=== PATIENT | male | born 1955 | race Caucasian/White ===

== ENCOUNTER 2017-11-06 11:30 | Emergency (ER) | payer OTHER ==
[2017-11-06] MEDS ORDERED: NS 1,000 ML IV ONE (11:44)
--- NOTE | 2017-11-06 11:49 | EDPHY ---
H & P Time Seen by Provider: 11/06/17 11:34 HPI/ROS: HPI Right flank pain. 61-year-old male by private vehicle. This patient reports that 4 days ago he was pulling some heavy tree branches to remove them from where they fell. He reports that soon after this he developed right-sided flank pain. He describes this is deep, dull and aching with some intermittent radiation to the right lower quadrant of his abdomen. He reports that he has had a sense of urgency to urinate but often can't and also states that he urinates frequently and in small amounts. He denies gross hematuria. He has not had a fever. He denies any history of trauma. He does report having a history of kidney stones as well as hepatitis-C. He has had some nausea but no vomiting. ROS: Constitutional: No fever, no chills. No weakness. Eyes: No discharge. No changes in vision. ENT: No sore throat. No nasal congestion or rhinorrhea. Respiratory: No cough. No shortness of breath. Cardiac: No chest pain, no palpitations. Gastrointestinal: As above, no vomiting, no diarrhea. Genitourinary: No hematuria. No dysuria or increased frequency with urination. Musculoskeletal: As above. No neck pain. No myalgias or arthralgias. Skin: No rashes. Neurological: No headache. No focal weakness or altered sensation. Past medical history: Orthopedic surgeries, chronic back pain, depression, hepatitis-C. Please see medication list. Social history: Here by himself. Smoker. Denies alcohol. Physical Exam: General Appearance: Alert, he appears uncomfortable but not in distress. Thin. This patient is responding to questions appropriately and in full sentences. This patient appears well-hydrated and well-nourished. Eyes: Pupils equal and round no pallor or injection. No lid edema, erythema or injection. Respiratory: There are no retractions, lungs are clear to auscultation anteriorly with good air movement bilaterally. Cardiovascular: Regular rate and rhythm. No murmur appreciated. Gastrointestinal: Abdomen is soft and nontender, no masses, bowel sounds normal. No focal tenderness at McBurney's point. No Romero sign. Neurological: Motor sensory function is grossly intact. Cranial nerves are normal. Gait is normal. Skin: Warm and dry, no rashes. Musculoskeletal: Vague right-sided CVA tenderness on palpation. No left-sided CVA tenderness. Extremities are symmetrical. All joints range without pain or impingement. Psychiatric: No agitation. No depression. Database: EKG: Imaging: CT abdomen and pelvis without contrast: Significant for a 19 mm x 11 mm right proximal ureteral stone with marked hydronephrosis, edema and indira-nephric stranding associated with the kidney. Please see radiology report for further details on this study. Results were discussed with staff radiologist Dr. Zeus Lagos. Procedures: Emergency department course: Triage vital signs reviewed. An IV was placed. He will be started on IV normal saline with 500 cc to 1 L to be given over the next hour. CT imaging of the abdomen and pelvis without contrast will be obtained to evaluate for ureterolithiasis. He will be given IV hydromorphone, 0.5 mg and 4 mg of IV Zofran as needed for pain and nausea. He consents to the emergency department workup and CT imaging. 12:15 p.m., the patient's urine dip indicates infection. This was sent for micro and culture. The patient will be started on 2 g of IV Rocephin in the emergency department. The patient was also given 4 mg of IV Zofran for nausea. He is declining pain medication. 12:35 p.m., the patient was re-evaluated. He is receiving his IV antibiotics at this time. Results of his CT scan, blood work and urinalysis discussed with him. Diagnosis and need for admission for treatment of kidney infection as well as urology consultation discussed with him. He is refusing admission at this time. He states that he has too many things going on at home that he needs to take care of before he is admitted. I have paged urology. The patient competently engages in conversation and understanding of his condition. They demonstrate capacitance to make decisions. Despite explaining to him the significant risks to his overall health as well as his kidney of being discharged from the emergency department and not being admitted at this time he is declining admission. Plan right now will be to try to arrange close outpatient follow-up with Urology. This patient likely will require a nephrostomy tube. 1:00 p.m., spoke with Urology, Dr. Zhao, case discussed in detail with her. She is in the OR at [facility] currently. As noted above the patient is refusing admission. However, Dr. Zhao will take this patient to the OR now at [facility] for nephrostomy and further management. The patient is in agreement with this plan. As of this time, I am unable to arrange for appropriate care through [facility]. I have filled out the appropriate transfer paperwork. The accepting physician is Dr. Zhao The patient is to go directly to admissions at [facility]. The patient understands this plan. He will go by private vehicle. All of his questions were answered. Return to emergency department precautions reviewed. He was discharged in good condition. I have prescribed him Levaquin and tramadol for treatment of his pyelonephritis. He has been NPO in the emergency department and understands he is not to eat or drink anything until after his procedure. Differential Diagnosis: The differential diagnosis on this patient includes but is not limited to musculoskeletal back pain, ureterolithiasis, pyelonephritis, hepatitis. This represents a partial list of diagnoses considered. These considerations are based on history, physical exam, past history, reassessment and diagnostic testing. Smoking Status: Current every day smoker Constitutional: Initial Vital Signs Temperature (C) 37.6 C 11/06/17 11:45 Heart Rate 79 11/06/17 11:45 Respiratory Rate 16 11/06/17 11:45 Blood Pressure 133/76 H 11/06/17 11:45 O2 Sat (%) 93 11/06/17 11:45 O2 Delivery Mode Room Air Allergies/Adverse Reactions: aspirin [Aspirin] Allergy (Severe, Verified 11/06/17 11:37) Anaphylaxis Home Medications: Medication Instructions Recorded Ibuprofen [Motrin (*)] 800 mg PO Q4-6PRN PRN #28 tab 09/13/15 Antidepressant 11/06/17 Epclusa 400 mg-100 mg Tablet 11/06/17 Subutex 11/06/17 levOFLOXACIN [levAQUIN (*)] 750 mg PO DAILY #10 tab 11/06/17 traMADol [Ultram 50 mg (*)] 50 - 100 mg PO Q4-6PRN PRN #20 tab 11/06/17 Medical Decision Making - Diagnostics Imaging Results: Imaging Impressions Abdomen/Pelvis CT 11/06/17 11:45 Impression: 1. Moderate to severe right hydroureteronephrosis, secondary to a 19 x 11 mm proximal right ureteral calculus with right perinephric stranding, also consistent with pyelonephritis. 2. Multiple nonobstructing left renal calculi, including a left renal pelvis 21 x 16 mm calculus. 3. No left hydronephrosis. 4. Atherosclerotic aorta without aneurysm. 5. Constipation. 6. Please see above findings. Findings and recommendations discussed with Emergency Department physician, Dr. Aaron Dodson at 1220 hours on November 06, 2017. Final report concurs with initial preliminary interpretation. Attention: This CT examination is specifically designed to evaluate patients who are clinically suspected of having acute obstructive uropathy. This examination does not use radiographic contrast, and as such, provides only a limited evaluation of the abdomen, pelvis and retroperitoneum. If there is further clinical suspicion for pathological conditions other than obstructive uropathy, a complete CT evaluation of the abdomen and pelvis utilizing intravenous, oral, and rectal contrast should be considered. - Data Points Laboratory Results: 11/06/17 12:13 POC Sodium 131 mEq/L L mEq/L (135-145) POC Potassium 4.7 mEq/L mEq/L (3.3-5.0) POC Chloride 99.0 mEq/L mEq/L (97-110) POC Total CO2 28 mEq/L mEq/L (22-31) POC BUN 22 mg/dL mg/dL (7-23) POC Creatinine 1.4 mg/dL H mg/dL (0.7-1.3) POC Glucose 156 mg/dL H mg/dL (70-100) POC Calcium 9.4 mg/dL mg/dL (8.5-10.4) POC Total Bilirubin 0.6 mg/dL mg/dL (0.1-1.4) POC AST 26 IU/L IU/L (17-59) POC ALT 16 IU/L L IU/L (21-72) POC Alk Phosphatase 75 IU/L IU/L (38-126) POC Total Protein 7.8 g/dL g/dL (6.3-8.2) POC Albumin 3.6 g/dL g/dL (3.5-5.0) Medications Given: Discontinued Medications Sodium Chloride (Ns) 1,000 mls @ 0 mls/hr IV EDNOW ONE; Wide Open PRN Reason: Protocol Stop: 11/06/17 11:45 Last Admin: 11/06/17 12:28 Dose: 1,000 mls Ceftriaxone Sodium 2 gm/ (Sodium Chloride) 100 mls @ 200 mls/hr IV EDNOW ONE PRN Reason: Protocol Stop: 11/06/17 12:39 Last Admin: 11/06/17 12:32 Dose: 100 mls Ondansetron HCl (Zofran) 4 mg IVP EDNOW ONE Stop: 11/06/17 12:17 Last Admin: 11/06/17 12:29 Dose: 4 mg Point of Care Test Results: CBC CBC Collection Date 11/06/17 CBC Collection Time 12:02 WBC 20.2 RBC 4.52 HGB 14.2 HCT 43.2 PLT 211 Neut # 19.4 Neut 96.4 LYMPH # 0.5 LYMPH 2.3 Other WBC # 0.3 Other WBC 1.3 MCV 95.6 Chemistry 11/06/17 12:13 POC Sodium 131 mEq/L L mEq/L (135-145) POC Potassium 4.7 mEq/L mEq/L (3.3-5.0) POC Chloride 99.0 mEq/L mEq/L (97-110) POC Total CO2 28 mEq/L mEq/L (22-31) POC BUN 22 mg/dL mg/dL (7-23) POC Creatinine 1.4 mg/dL H mg/dL (0.7-1.3) POC Glucose 156 mg/dL H mg/dL (70-100) POC Calcium 9.4 mg/dL mg/dL (8.5-10.4) POC Total Bilirubin 0.6 mg/dL mg/dL (0.1-1.4) POC AST 26 IU/L IU/L (17-59) POC ALT 16 IU/L L IU/L (21-72) POC Alk Phosphatase 75 IU/L IU/L (38-126) POC Total Protein 7.8 g/dL g/dL (6.3-8.2) POC Albumin 3.6 g/dL g/dL (3.5-5.0) Urine Dip Collection Date 11/06/17 Collection Time 11:54 Specific Wilson (1.002-1.030) 1.030 PH (5.0-7.5) 6.5 Leukocytes (Negative) 3+ Nitrites (Negative) Positive Protein (Negative) 2+ Glucose (Negative) Negative Ketones (Negative) Negative Urobilnogen (0.2-1.0 EU) 0.2 Bilirubin (Negative) Negative Blood (Negative) 2+ Departure - Departure Disposition: Acute Care Hospital Not [facility] Clinical Impression: Right flank pain, Right kidney stone, Pyelonephritis Condition: Good Instructions: Kidney Stones (ED), Kidney Infection (ED), Nephrostomy Tube Insertion (DC) Additional Instructions: Read and follow provided instructions. You are to go directly to [facility], main entrance, ask for admissions at the front end manager. They are expecting you. You will be taken care of by Dr. Abigail Zhao of the Urology service. Do not eat or drink anything until after your procedure. Take medication as prescribed after your procedure. Nothing before you're procedure. Return to the emergency department for worsening pain, fever, vomiting or other serious concerns. Referrals: Abigail Zhao MD [Medical Doctor] - As per Instructions Prescriptions: levOFLOXACIN [levAQUIN (*)] 750 mg PO DAILY #10 tab traMADol [Ultram 50 mg (*)] 50 - 100 mg PO Q4-6PRN PRN #20 tab PRN Reason: Pain, Moderate
[2017-11-06] MEDS ORDERED: ONDANSETRON 4 MG/2 ML VIAL IVP ONE (12:16)
[2017-11-06] MEDS ORDERED: LR 1,000 ML IV ONE (16:18)
[2017-11-06] MEDS ORDERED: PROPOFOL 200 MG/20 ML VIAL ONE (18:54)
[2017-11-06] MEDS ORDERED: DEXAMETHASONE 4 MG/ML VIAL ONE (18:54)
[2017-11-06] MEDS ORDERED: ONDANSETRON 4 MG/2 ML VIAL ONE (18:54)
[2017-11-06] MEDS ORDERED: LIDOCAINE 2% 5 ML SDV ONE (18:54)
[2017-11-06] MEDS ORDERED: fentaNYL 100 MCG/2 ML INJ ONE (18:54)
--- NOTE | 2017-11-06 20:19 | POSTOPPROG ---
Post Op Note Date of Operation: 11/06/17 Surgeon: Abigail Zhao Anesthesia: GET(General Endotracheal) Pre-op Diagnosis: obstructing right ureteral stone, left large renal pelvis stone, UTI Post-op Diagnosis: same Indication: infection and obstructing stone Procedure: cystoscopy, bilateral ureteral stent placement, intraoperative fluoroscopy Findings: difficult stent on R due to obstruction of stone Inf/Abcess present in the surg proc area at time of surgery?: Yes Depth: Organ Space (urologic) EBL: Minimal Complications: None,pt tolerated procedure well Specimen(s): Urine for culture
[2017-11-06] MEDS ORDERED: ONDANSETRON 4 MG/2 ML VIAL IVP PRN (20:23)
[2017-11-06] MEDS ORDERED: ALBUTEROL 3 ML DEYVIAL IH PRN (20:23)
[2017-11-06] MEDS ORDERED: NALOXONE HCL 0.4 MG/ML INJ IVP PRN (20:23)
[2017-11-06] MEDS ORDERED: fentaNYL 100 MCG/2 ML INJ IVP PRN (20:23)
[2017-11-06 22:27] VITALS: BP 117/74
== END 2017-11-06 20:55 | disposition home or self-care (01) ==
LOC: FSGY 11:30 → CED 13:34 → FSGY 16:15
DX: N13.2 Hydronephrosis with renal and ureteral calculous obstruction (principal); R10.31 Right lower quadrant pain; E86.9 Volume depletion, unspecified; Z87.442 Personal history of urinary calculi; B19.20 Unspecified viral hepatitis C without hepatic coma; F17.210 Nicotine dependence, cigarettes, uncomplicated
CPT/HCPCS: 74176-PO; 80053-PO; 96365; J0696; J1100; J2405; J2704; J3010

== ENCOUNTER → 2017-11-06 | Day surgery (SDC) | payer OTHER ==
[~2017-11-06] MED LIST: ALBUTEROL 3 ML DEYVIAL IH PRN; DEXAMETHASONE 4 MG/ML VIAL ONE; IOPAMIDOL (ISOVUE-M 300) 15 ML VIAL ONE; LIDOCAINE 2% 5 ML SDV ONE; LIDOCAINE 2% JELLY 20 ML (UROJECT) ONE; LR 1,000 ML IV ONE; MIDAZOLAM 2 MG/2 ML VIAL IVP ONE; NALOXONE HCL 0.4 MG/ML INJ IVP PRN; ONDANSETRON 4 MG/2 ML VIAL IVP PRN; ONDANSETRON 4 MG/2 ML VIAL ONE; OPIUM/BELLADONNA ALKALO SUPP PR ONE; PROPOFOL 200 MG/20 ML VIAL ONE; fentaNYL 100 MCG/2 ML INJ IVP PRN; fentaNYL 100 MCG/2 ML INJ ONE
--- NOTE | 2017-11-06 18:51 | PDANEPAE ---
ANE History of Present Illness ureteral stone ANE Past Medical History - Cardiovascular History Hx Hypertension: No Hx Arrhythmias: No Hx Chest Pain: No Hx Coronary Artery / Peripheral Vascular Disease: No Hx CHF / Valvular Disease: No Hx Palpitations: No - Pulmonary History Hx COPD: No Hx Asthma/Reactive Airway Disease: No Hx Recent Upper Respiratory Infection: No Hx Oxygen in Use at Home: No Hx Sleep Apnea: No - Neurologic History Hx Cerebrovascular Accident: No Hx Seizures: No Hx Dementia: No - Endocrine History Hx Diabetes: No Hypothyroid: No Hyperthyroid: No Obesity: no - Renal History Hx Renal Disorders: Yes Renal History Comment: calculi - Liver History Hx Hepatic Disorders: No - Neurological & Psychiatric Hx Hx Neurological and Psychiatric Disorders: No ANE Review of Systems Review of systems is: negative Review of Systems: ANE Patient History - Allergies Allergies/Adverse Reactions: aspirin [Aspirin] Allergy (Severe, Verified 11/06/17 11:37) Anaphylaxis - Home Medications Home Medications: Antidepressant 11/06/17 [Last Taken 1 Week Ago ~10/30/17] Epclusa 400 mg-100 mg Tablet 11/06/17 [Last Taken 11/05/17] Subutex 11/06/17 [Last Taken 11/05/17] - NPO status NPO Status: no food or drink >8 hours NPO Since - Liquids (Date): 11/06/17 NPO Since - Liquids (Time): 04:30 NPO Since - Solids (Date): 11/05/17 NPO Since - Solids (Time): 10:30 - Anes Hx Anes Hx: no prior problems - Smoking Hx Smoking Status: Current every day smoker ANE Labs/Vital Signs - Vital Signs Blood Pressure: 123/70 Heart Rate: 90 Respiratory Rate: 18 O2 Sat (%): 91 Height: 172.72 cm Weight: 54.431 kg ANE Physical Exam - Airway Mallampati Score: Class 2 Mouth exam: normal dental/mouth exam - Pulmonary Pulmonary: no respiratory distress - Cardiovascular Cardiovascular: regular rate and rhythym - ASA Status ASA Status: II ANE Anesthesia Plan Anesthesia Plan: GA w LMA
--- NOTE | 2017-11-06 19:16 | PDCONSULT ---
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 Aaron Dodson [facility] Right obstructing ureteral stone, concern for pyelo HPI 61M w significant bilateral stone burden. Seen at [facility] ER, CT done, he is not wanting admission to the hospital. Dr. Dodson discussed him going to [facility] for stent today, as I was operating there, but then due to insurance reasons, I then advised him to go to [facility] where I would place a stent. CT today personally reviewed = Right large proximal ureteral stone, significant hydronephrosis and hydroureter. Significant left nonobs stone burden. Kidney suspicious for pyelonephritis as well. Patient with significant Right flank pain over past for days. No fevers or chills. PMH Past medical history: Orthopedic surgeries, chronic back pain, depression, hepatitis-C. Please see medication list. Social history: Here by himself. Smoker. Denies alcohol. ROS 10PT ROS performed, as stated in HPI, otherwise neg. Labs: WBC normal Cr 1.4 UA 50-182WBC, ++RBC. A/P To the OR for Right ureteral stent placement. Discussed that the size of this R obs stone is very large, may not be able to pass a stent, at which point IR would need to place R PCNT. He understands and agrees to proceed w stent placement. Consent received. Eunice parra. He received Rocephin earlier today.
--- NOTE | 2017-11-06 20:22 | POSTANESTH ---
Post Anesthetic Evaluation Cardiovascular Status: Normal, Stable Respiratory Status: Normal, Stable Level of Consciousness/Mental Status: Can Participate in Eval Pain Control: Adequate, Prn Tx Ordered Nausea/Vomiting Control: Adequate, Prn Tx Ordered Complications Possibly Related to Anesthesia: None Noted
--- NOTE | 2017-11-06 21:15 | GOP ---
[f rep st] OPERATIVE REPORT DATE OF OPERATION: 11/06/2017 SURGEON: Abigail Zhao MD ANESTHESIA: General. PREOPERATIVE DIAGNOSIS: Obstructing right ureteral stone, large left renal pelvis stone, urinary tract infection. POSTOPERATIVE DIAGNOSIS: Obstructing right ureteral stone, large left renal pelvis stone, urinary tract infection. PROCEDURE PERFORMED: Cystoscopy and bilateral ureteral stent placement and intraoperative fluoroscopy. FINDINGS: Difficult right stent placement due to difficulty passing stent past the obstructing stone, but eventual success with a 4.7-Trinidadian stent. Left stent placed without difficulty. Also cloudy urine consistent with UTI. SPECIMENS: Urine for culture. ESTIMATED BLOOD LOSS: None. INDICATIONS: UTI and obstructing stone. DESCRIPTION OF PROCEDURE: He was taken back to the cystoscopy suite, placed on the cystoscopy table in a supine position. General anesthesia induced without complication. Time-out performed and core measures satisfied including placement of a Jayda Hugger, SCDs, and administration of 750mg of Levaquin antibiotics. He was brought to the end of the table, placed in dorsal lithotomy position. All pressure points padded. Genitalia draped and prepped in the standard surgical fashion with Betadine. A rigid cystoscope easily cannulated the urethral meatus and was advanced atraumatically into the bladder. Arteaga cystoscopy was performed, but was difficult due to cloudy urine which obstructed visualization. The right ureteral orifice was identified. A 0.035 Glidewire was advanced through the scope with the help of a 5-Trinidadian open- ended catheter. In the mid ureter, there was a complete 360 degree turn. I was able to get a 5-Trinidadian open-end catheter to do this turn over the wire and get that passed the mid proximal circumferential turn. At this point, then I kept working to try to advance the wire up and it did advance into the kidney, so at this point, I had a wire in place with a very tortuous ureter and then attempted to place a 6-Trinidadian multivariable stent, but the multivariable stent while it did go past the circumferential area in the mid ureter, once it hit the stone, it would not go past and at this point then, I had the wire still up. I removed that stent and then tried a 4.7-Trinidadian multivariable stent and this did advance actually easily past the stone and into the renal pelvis. There was a nice curl in the renal pelvis and a nice curl in the bladder with the stent placement. I then decided to also place a left-sided stent given his infection and a very large stone that was in the left renal pelvis which was over 2 cm. I then used fluoroscopic guidance and placed a 0.035 Glidewire in the left collecting system and then advanced a 6-Trinidadian multivariable stent over the wire with a nice curl in the renal pelvis around that large stone and then a nice curl in the bladder. At this point, I then emptied the bladder and considered the procedure complete. Lidocaine jelly placed per urethra and belladonna opium suppository placed per rectum. The procedure was considered complete. He was awoken from anesthesia and transferred to PACU in good condition. COMPLICATIONS: None. The patient tolerated the procedure well. INDICATION FOR PROCEDURE: The patient presented to the urgent care at [facility] in [place] today. A CT scan demonstrated an extremely large right-sided ureteral stone measuring 19 x 11 mm proximally in the right ureter with significant hydroureter and hydronephrosis in the kidney consistent with pyelonephritis on the noncontrast CT scan. He also has a very large left renal pelvis stone 2 x 1.5 cm in the left renal pelvis. He had significant right flank pain and desired intervention. Due to his urine indicating UTI with several whites and red blood cells, stent was elected to be placed. He drove himself actually to the [facility] for the stent placement. The patient was seen in the preoperative holding area where the rationale, risks , and benefits of the procedure were discussed in detail. I did say that the 19 mm stone in his right ureter may prevent placement of the stent due to the obstruction and that I may need to place a right percutaneous nephrostomy tube. He understood this and agreed to proceed. He was given Rocephin earlier in the day and then I did order Levaquin preoperatively for him at this time. /[id number]/MODL MTDD
[2017-11-10 13:56] VITALS: BP 102/78
== END | disposition home or self-care (01) ==
LOC: FSGY 17:03
PROVIDERS: ATTEND Urology
PROC: 0T788DZ Dilation of Bilateral Ureters with Intraluminal Device, Via Natural or Artificial Opening Endoscopic (ICD-10-PCS; principal; 2017-11-06 18:30)
DX: N13.6 Pyonephrosis (principal); N39.0 Urinary tract infection, site not specified
CPT/HCPCS: C1758; C1769; C2625; J1100; J1956; J2250; J2405; J2704; J3010; Q9967

== ENCOUNTER → 2018-03-02 | Outpatient (CLI) | payer OTHER | LOC: CIMAGING 10:55 | PROVIDERS: ATTEND Urology | DX: N20.0 Calculus of kidney (principal) | CPT/HCPCS: 74018-PO ==

== ENCOUNTER 2018-07-01 14:14 | Emergency (ER) | payer OTHER ==
[2018-07-01] MEDS ORDERED: ONDANSETRON 4 MG/2 ML VIAL IVP ONE (15:02)
[2018-07-01] MEDS ORDERED: HYDROmorphONE/DILAUDID 2 MG/ML INJ IVP ONE (15:02)
[2018-07-01] MEDS ORDERED: NS 1,000 ML IV ONE (15:02)
[2018-07-01] MEDS ORDERED: fentaNYL 100 MCG/2 ML INJ IVP ONE (15:15)
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
[2018-07-01 17:07] VITALS: BP 122/77
== END 2018-07-01 16:48 | disposition home or self-care (01) ==
LOC: CED 14:14
DX: N13.2 Hydronephrosis with renal and ureteral calculous obstruction (principal); N30.01 Acute cystitis with hematuria; E86.9 Volume depletion, unspecified; K59.00 Constipation, unspecified; I10 Essential (primary) hypertension; E11.9 Type 2 diabetes mellitus without complications; I70.0 Atherosclerosis of aorta
CPT/HCPCS: 74176-PO; 80048-ER; 85025-QW-ER; 96361-ER; 96365-ER; 96375-ER; 99285-ER; J0696; J2405; J3010